=== PATIENT | female | born 1965 | race Caucasian/White ===

== ENCOUNTER 2017-01-16 06:40 | Day surgery (SDC) | payer OTHER ==
[2017-01-16] VITALS (11 sets, daily range): BP systolic 121–161; BP diastolic 67–91; PULSE 62–72; RESP 14–24; Ht 167.6 cm; Wt 90.0 kg
[~2017-01-16] VITALS: Ht 167.6 cm; Wt 90.0 kg
[~2017-01-16 06:40] MED LIST: ATROPINE 1 MG/10 ML SYRINGE IV PRN; DIPHENHYDRAMINE 50 MG INJ IV PRN; EPHEDrine SULFATE 50 MG/5 ML SYG IV PRN; FENTAnyl 50 MCG/ML VIAL IV PRN; HYDROmorphONE (0.2 MG/ML) 10ML SYG IV PRN; LABETALOL HCL 20MG INJ IV PRN; MEPERIDINE 25 MG INJ IV PRN; MIDAZOLAM 1 MG/ML 2 ML INJ IV PRN; ONDANSETRON 4 MG INJ IV PRN; OXYCODONE/ACETAMINOPHEN (5/325) TAB PO PRN; hydrALAzine 20 MG INJ IV PRN; morphine (1 MG/ML) 10ML SYRINGE IV PRN
--- NOTE | 2017-01-16 07:37 | HPN ---
Date/Time of Note Date/Time of Note DATE: 01/16/17 TIME: 07:37 Interval H&P Admission Note Pt. seen H&P reviewed: No system changes JOHANNA YOO MD Jan 16, 2017 07:37
[2017-01-16] MEDS ORDERED: HYDROmorphONE (0.2 MG/ML) 10ML SYG IV PRN ×4 (08:00→11:30)
[2017-01-16] MEDS ORDERED: FENTAnyl 50 MCG/ML VIAL ONE ×2 (08:31→10:30)
[2017-01-16] MEDS ORDERED: LIDOCAINE 2% (SDV) 5 ML INJ ONE (08:31)
[2017-01-16] MEDS ORDERED: PROPOFOL 20 ML ONE (08:31)
[2017-01-16] MEDS ORDERED: ROCURONIUM 50 MG INJ ONE (08:31)
[2017-01-16] MEDS ORDERED: NEOSTIGMINE 3 MG/3 ML SYRINGE ONE (08:31)
[2017-01-16] MEDS ORDERED: DEXAMETHASONE 4 MG/ML 1 ML INJ ONE (08:31)
[2017-01-16] MEDS ORDERED: MIDAZOLAM 1 MG/ML 2 ML INJ ONE (08:31)
[2017-01-16] MEDS ORDERED: GLYCOPYRROLATE 0.4 MG INJ ONE (08:31)
[2017-01-16] MEDS ORDERED: CEFAZOLIN 1 GM INJ ONE (08:32)
[2017-01-16] MEDS ORDERED: ONDANSETRON 4 MG INJ ONE (08:32)
[2017-01-16] MEDS ORDERED: SUGAMMADEX SODIUM 200 MG/2 ML VIAL IV ONE ×2 (08:32→11:05)
[2017-01-16] MEDS ORDERED: BUPIVACAINE 0.5%/EPI (SDV) 10 ML INJ ONE (10:44)
[2017-01-16] MEDS ORDERED: BUPIVACAINE 0.25% (MPF) 30 ML INJ ONE (10:45)
[2017-01-16] MEDS ORDERED: ROPIVACAINE 0.5 % 30 ML VIAL ONE (10:52)
[2017-01-16] MEDS ORDERED: BUPIVACAINE 0.25% (MPF) 30 ML INJ INJ ONE (11:06)
--- NOTE | 2017-01-16 11:17 | OPR ---
Date/Time of Note Date/Time of Note DATE: 01/16/17 TIME: 11:11 Operative Report Procedure Date: Jan 16, 2017 Preoperative Diagnosis Gallstones without obstruction Postoperative Diagnosis Gallstones without obstruction Operation Performed Laparoscopic cholecystectomy Surgeon: JOHANNA YOO MD Anesthesia Type: general Anesthesiologist: EMANUEL LANE Estimated Blood Loss: 10 - 50 ml's Transfusion Required: no Specimens Gallbladder Grafts/Implants: none Tubes/Drains None Complications: no Pt Condition Post Procedure: stable Disposition: PACU Indications Symptoms Operative\Procedure Findings Chronically inflamed gallbladder Procedure Description After satisfactory general endotracheal anesthesia was achieved, the abdomen was prepped and draped in the usual fashion. Abdomen was insufflated with carbon dioxide through an umbilical Veress needle to 15 mmHg pressure. The Veress needle was removed and the umbilical incision extended to 5 mm which a 5 mm trocar was placed. 5 mm 0 lens was placed. Laparoscopy showed a chronically inflamed gallbladder. Under direct visualization a 12 mm epigastric trocar was placed as well as 2 5 mm right lateral abdominal trochars. The dome of the gallbladder was grasped and retracted superiorly. Palacios's pouch was retracted infero-laterally. The hepatoduodenal ligament was carefully dissected tween the gallbladder and the very well-visualized brandon hepatis. The cystic duct was then quadruply hemoclipped and divided high at the junction of the gallbladder and the cystic duct. The cystic artery was identified immediately posteriorly, then triply hemoclipped and divided. The bladder was then dissected from below using electrocautery dissection and placed fully intact into an Endo Catch removed via the 12 mm port site. The gallbladder was submitted. Hemostasis of the liver bed was excellent and irrigant returned clear. The abdomen was then desufflated and the trochars removed. The fascia of the epigastrium was closed with a single suture of 0 Vicryl. The skin punctures were infiltrated with 30 cc of 0.25% plain Marcaine and closed with mahad. Sponge and needle counts were reported as correct 2. JOHANNA YOO MD Jan 16, 2017 11:17
--- NOTE | 2017-01-16 11:24 | PN ---
Date/Time of Note Date/Time of Note DATE: 01/16/17 TIME: 11:22 Assessment/Plan Lines/Catheters IV Catheter Type (from Nrsg): Peripheral IV Assessment/Plan Chief Complaint/Hosp Course Excellent postoperative recovery Problems: Assessment/Plan I removed the ATTILA drain at the bedside Patient is cleared for discharge home today Office follow-up 1 week Subjective 24 Hr Interval Summary Postoperative day #1 Patient markedly symptomatically improved Constitutional: no complaints Pain Control: well controlled Exam/Review of Systems Vital Signs Vitals Vital Signs Date Time Temp Pulse Resp B/P Pulse Ox O2 Delivery O2 Flow Rate FiO2 01/16/17 08:02 97.7 72 19 121/73 100 Room Air Intake and Output 01/15/17 01/15/17 01/16/17 15:00 23:00 07:00 Intake Total 0 ml Balance 0 ml JOHANNA YOO MD Jan 16, 2017 11:24
[2017-01-16] MEDS ORDERED: OXYCODONE/ACETAMINOPHEN (5/325) TAB PO PRN ×4 (11:30→12:30)
[2017-01-16] MEDS ORDERED: DIPHENHYDRAMINE 50 MG INJ IV PRN (11:30)
[2017-01-16] MEDS ORDERED: ONDANSETRON 4 MG INJ IV PRN ×3 (11:30→12:30)
[2017-01-16] MEDS ORDERED: METOCLOPRAMIDE 10 MG INJ IV PRN (11:30)
[2017-01-16] MEDS ORDERED: morphine 2 MG INJ IV PRN ×2 (11:30→12:30)
[2017-01-16] MEDS ORDERED: MEPERIDINE 25 MG INJ IV PRN (11:30)
[2017-01-16] MEDS ORDERED: FENTAnyl 50 MCG/ML VIAL IV PRN ×3 (11:30)
== END 2017-01-16 14:05 | disposition home or self-care (01) ==
LOC: SDS 06:40
PROVIDERS: ATTEND Surgery
DX: K80.10 Calculus of gallbladder with chronic cholecystitis without obstruction (principal); I10 Essential (primary) hypertension; E66.9 Obesity, unspecified; Z68.32 Body mass index [BMI] 32.0-32.9, adult
CPT/HCPCS: 47562; 88304; J0690; J1100; J1170; J2405; J2710; J2795; J3010; Z7512; Z7610; J2250

== ENCOUNTER → 2018-04-07 | Outpatient (CLI) | END | disposition home or self-care (01) ==

== ENCOUNTER 2018-04-14 09:58 | Day surgery (SDC) | END 2018-04-14 15:55 | disposition home or self-care (01) ==